=== PATIENT | female | born 1945 | race Caucasian/White ===

== ENCOUNTER → 2017-10-08 11:05 | Outpatient (CLI) | payer BC, MEDICARE, SELFPAY ==
--- NOTE | 2017-10-08 11:13 | XR_ITS ---
XR knee RT 3V HISTORY: ITS.REASON: RT KNEE PAIN ORDERING PHYSICIAN: Truman Pinto MD PATIENT AGE: 72 years COMPARISON: 04/30/2015 FINDINGS: Moderate to severe osteoarthritic changes involving the medial compartment with moderate osteoarthritis of the lateral compartment and patellofemoral joint. There is chondrocalcinosis of the medial and lateral meniscus. 9 mm partially calcified density is present along the anterior proximal aspect of the tibia. There are small prepatellar calcific densities noted as well which have increased in number. May be a bone infarct of the distal femur not significantly changed. IMPRESSION: 1. No acute finding. 2. Osteoarthritis slightly worse in the medial compartment with chondrocalcinosis and nonspecific periarticular calcification
== END ==
PROVIDERS: PCP Family Medicine; Visit Provider Family Medicine
DX: M25.561 Pain in right knee (principal)
CPT/HCPCS: 73562

== ENCOUNTER → 2018-10-29 14:18 | Outpatient (POV) | payer BC, MEDICARE, SELFPAY | PROVIDERS: Visit Provider Dermatology | DX: Z00.00 Encounter for general adult medical examination without abnormal findings (principal) ==

== ENCOUNTER → 2019-06-17 09:05 | Outpatient (POV) | payer BC, MEDICARE, SELFPAY | PROVIDERS: Visit Provider Dermatology | DX: Z00.00 Encounter for general adult medical examination without abnormal findings (principal) ==

== ENCOUNTER → 2019-08-12 10:46 | Outpatient (POV) | payer BC, MEDICARE, SELFPAY | PROVIDERS: PCP Dermatology; Visit Provider Dermatology | DX: Z00.00 Encounter for general adult medical examination without abnormal findings (principal) ==

== ENCOUNTER → 2020-03-02 11:10 | Outpatient (POV) | payer BC, MEDICARE, SELFPAY | PROVIDERS: Visit Provider Dermatology | DX: Z00.00 Encounter for general adult medical examination without abnormal findings (principal) ==

== ENCOUNTER → 2021-02-22 10:41 | Outpatient (POV) | payer BC, MEDICARE, SELFPAY | PROVIDERS: Visit Provider Dermatology | DX: Z00.00 Encounter for general adult medical examination without abnormal findings (principal) ==

== ENCOUNTER → 2021-06-27 17:27 | Outpatient (CLI) | payer BC, MEDICARE, SELFPAY ==
[2021-06-27 18:49] LABS: Adenovirus,PCR Not Detected (NotDetected); Bordetella Pertussis Not Detected (NotDetected); Chlamydophila Pneumoniae, PCR Not Detected (NotDetected); Coronavirus 229E Not Detected (NotDetected); Coronavirus NL63 Not Detected (NotDetected); Coronavirus OC43 Not Detected (NotDetected); Coronovirus HKU1,PCR Not Detected (NotDetected); Human Metapneumovirus Not Detected (NotDetected); Influenza A, PCR Not Detected (NotDetected); Influenza AH1, 2009 Not Detected (NotDetected); Influenza AH1, PCR Not Detected (NotDetected); Influenza AH3,PCR Not Detected (NotDetected); Influenza B, PCR Not Detected (NotDetected); Mycoplasma Pneumoniae, PCR Not Detected (NotDetected); Parainfluenza 1, PCR Not Detected (NotDetected); Parainfluenza 2, PCR Not Detected (NotDetected); Parainfluenza 3, PCR Not Detected (NotDetected); Parainfluenza 4, PCR Not Detected (NotDetected); Respiratory Syncytial Virus Not Detected (NotDetected); Rhinovirus/Enterovirus Not Detected (NotDetected)
[2021-06-27 19:05] LABS: Basophils # 0.1 K/mm3 (0-0.2); Basophils % 1.5 % (0.1-2.0); Eosinophils # 0.2 K/mm3 (0.0-0.4); Eosinophils % 2.3 % (0.1-12.0); Hematocrit 41.9 % (37.0-47.0); Lymphocytes # 3.3 K/mm3 (0.7-4.5); Lymphocytes % 38.3 % (10-50); Mean Corpuscular HGB Conc 33.3 g/dL (31.8-35.4); Mean Platelet Volume 9.5 fl (7.4-10.4); Monocytes # 0.4 K/mm3 (0.1-1.0); Monocytes % 5.2 % (1.7-9.3); Neutrophils # 4.5 K/mm3 (1.8-7.8); Neutrophils % 52.7 % (37.0-80.0); Platelet Count 361 K/mm3 (142-424); Red Blood Count 4.66 M/mm3 (4.20-5.40); Red Cell Distribution Width 13.3 % (11.5-17.5); White Blood Count 8.5 K/mm3 (4.8-10.8)
== END ==
PROVIDERS: PCP Family Medicine; Visit Provider Family Medicine
DX: Z20.822 Contact with and (suspected) exposure to COVID-19 (principal)
CPT/HCPCS: 36415; 85025; 87486; 87581; 87632; 87798; C9803; U0003; U0005

== ENCOUNTER → 2021-08-19 16:39 | Outpatient (CLI) | payer BC, MEDICARE, SELFPAY | PROVIDERS: PCP Family Medicine; Visit Provider Family Medicine | DX: G47.33 Obstructive sleep apnea (adult) (pediatric) (principal); R06.83 Snoring; R53.83 Other fatigue; I10 Essential (primary) hypertension; G47.10 Hypersomnia, unspecified; E66.9 Obesity, unspecified | CPT/HCPCS: G0399 ==

== ENCOUNTER → 2022-04-25 09:27 | Outpatient (CLI) | payer BC, MEDICARE, SELFPAY ==
--- NOTE | 2022-04-25 09:32 | XR_ITS ---
FINAL REPORT TECHNIQUE: 3 views CLINICAL HISTORY: wrist pain FINDINGS: RIGHT WRIST 3 views of the right wrist were obtained. There is no acute fracture or dislocation. There is severe degenerative changes of the 1st CMC joint. There are moderate degenerative changes of the radiocarpal joint. There is chondrocalcinosis of the TFCC. There is narrowing of the ulnar lunate space which may be seen with ulnar lunate abutment and TFCC disease. There is also mild widening of the scapholunate space. Soft tissues are without acute abnormality. IMPRESSION: Multiple chronic changes as above without no acute fracture. Reviewed, Interpreted and Dictated by Ena Stroud MD Transcribed by Savana Collado Authenticated and . [facility]
--- NOTE | 2022-04-25 09:32 | XR_ITS ---
FINAL REPORT TECHNIQUE: 3 views CLINICAL HISTORY: wrist pain FINDINGS: LEFT WRIST 3 views of the left wrist were obtained. There is no acute fracture or dislocation. There are moderate degenerative changes of the 1st CMC joint. There is borderline widening of the scapholunate space which could be sequela of old ligamentous injury. There are mild cystic changes of the lunate. Visualized joints are normally aligned. Soft tissues are without acute abnormality. IMPRESSION: Chronic appearing changes as above without acute process. Reviewed, Interpreted and Dictated by Ena Stroud MD Transcribed by Savana Collado Authenticated and . [facility]
== END ==
PROVIDERS: PCP Family Medicine; Visit Provider Orthopaedic Surgery
DX: M25.532 Pain in left wrist (principal); M25.531 Pain in right wrist
CPT/HCPCS: 73110

== ENCOUNTER → 2022-05-15 11:13 | Outpatient (CLI) | payer BC, MEDICARE, SELFPAY ==
--- NOTE | 2022-05-15 11:21 | XR_ITS ---
FINAL REPORT TECHNIQUE: Chest PA & Lateral CLINICAL HISTORY: cough pre op hand surg FINDINGS: 2 views of the chest were performed. The heart size is normal. The mediastinum is within normal limits. There is mild left base opacity. There are no pleural effusions. There is no pneumothorax. There are mild and moderate degenerative changes of the thoracic spine. IMPRESSION: Mild left base opacity favors atelectasis or scarring. Reviewed, Interpreted and Dictated by Rom Hernandez III, MD Transcribed by Sergio Cope Authenticated and [facility]
[2022-05-15 11:32] LABS: Microscopic, Urine URINE MICROSCOPIC (MICROSCOPIC)
[2022-05-15 12:41] LABS: Basophils # 0.1 K/mm3 (0-0.2); Basophils % 1.3 % (0.1-2.0); Eosinophils # 0.2 K/mm3 (0.0-0.4); Eosinophils % 2.3 % (0.1-12.0); Hematocrit 41.8 % (37.0-47.0); Hemoglobin 14.4 g/dL (12.2-16.2); Lymphocytes # 2.7 K/mm3 (0.7-4.5); Lymphocytes % 32.2 % (10-50); Mean Corpuscular HGB Conc 34.4 g/dL (31.8-35.4); Mean Corpuscular Hemoglobin 29.9 pg (27.0-31.2); Mean Corpuscular Volume 86.7 fl (81-99); Mean Platelet Volume 9.9 fl (7.4-10.4); Monocytes # 0.5 K/mm3 (0.1-1.0); Monocytes % 5.9 % (1.7-9.3); Neutrophils % 58.3 % (37.0-80.0); Platelet Count 391 K/mm3 (142-424); Red Blood Count 4.83 M/mm3 (4.20-5.40); Red Cell Distribution Width 12.9 % (11.5-17.5); White Blood Count 8.5 K/mm3 (4.8-10.8)
[2022-05-15 12:51] LABS: Appearance,Urine CLEAR (Clear); Bilirubin,Urine Negative (Negative); Blood, Urine Negative (Negative); Color,Urine YELLOW (Yellow); Glucose,Urine (UA) Negative (Negative); Ketones,Urine Negative (Negative); Leukocyte Esterase,Urine 2+ (Negative); Nitrate,Urine Negative (Negative); PH,Urine 5.5 (5.0-8.5); Protein,Urine Negative (Negative); Specific Gravity, Urine 1.025 (1.005-1.030); Urobilinogen,Urine 0.2 EU/dl (0.2)
[2022-05-15 13:09] LABS: Bacteria,Urine 1+ /lpf
[2022-05-15 13:43] LABS: Alanine Aminotransferase 21 U/L (12-78); Albumin Level 4.5 g/dl (3.5-5.0); Albumin/Globulin Ratio 1.7 (1.1-1.8); Alkaline Phosphatase 91 U/L (38-126); Anion Gap 15.3 mEq/L (5-15); Aspartate Amino Transferase 29 U/L (14-36); Bilirubin,Total 0.4 mg/dl (0.2-1.3); Blood Urea Nitrogen 38 mg/dl (7-17); Calcium 9.7 mg/dl (8.4-10.2); Carbon Dioxide 22 mmol/L (22.0-30.0); Chloride 107 mmol/L (98-107); Estimated Glomerular Filt Rate 60 ml/min (>60); GFR (African American) 73 ML/MIN (>60); Globulin 2.6 g/dL (1.3-3.2); Glucose 94 mg/dl (74-100); Potassium 4.3 mmoL/L (3.5-5.1); Sodium 140 mmol/L (136-145); Total Protein,Serum 7.1 g/dl (6.3-8.2)
== END ==
PROVIDERS: PCP Family Medicine; Visit Provider Orthopaedic Surgery
DX: Z01.818 Encounter for other preprocedural examination (principal); G56.01 Carpal tunnel syndrome, right upper limb; R05.9 Cough, unspecified; R82.90 Unspecified abnormal findings in urine
CPT/HCPCS: 36415; 71046; 80053; 81001; 85025; 87086

== ENCOUNTER 2022-05-22 06:01 | Day surgery (SDC) | payer BC, MEDICARE, SELFPAY ==
[2022-05-22 06:27] VITALS: BP 152/56; PULSE 62; RESP 18; TEMP 36.3; O2SAT 98; BMI 33.9
--- NOTE | 2022-05-22 07:08 | P.PN_ITS ---
[facility] Disclaimer: The information contained in this section may have been updated after the patient was seen, as this information can be updated by other users. Medical History (Updated 05/22/22 @ 06:25 by Benjamin Cyr RN) History of acute arthritis History of hypothyroidism HLD (hyperlipidemia) HTN (hypertension) Wrist pain Surgical History (Updated 05/22/22 @ 06:25 by Benjamin Cyr RN) History of appendectomy History of knee replacement History of thyroidectomy Family History (Updated 05/22/22 @ 06:26 by Benjamin Cyr RN) Other Family history of Alzheimer's disease Family history of cancer Family history of cardiac arrest Social History (Updated 05/22/22 @ 06:27 by Benjamin Cyr RN) Smoking Status: Never smoker second hand exposure: No alcohol intake: never substance use type: denies use current occupational status: employed Travel in the last 8 weeks: None [facility] Anesthesia Checklist Patient Identification Patient Identification: Arm Band and Family Structural Data Admitted From: Home Planned Operative Procedure/s: Endocopic CTR Consent for Planned Operative Procedure(s) Verified: Yes Verified Documents: Surgical Consent and History and Physical NPO Status Verified Time NPO: 00:00 Additional verifications Patient : No Anesthesia Reactions: No Hx Blood Transfusions: No Blood Transfusion Reaction: No Cephalosporin Allergy: No Previous Colonoscopy: Yes Cardiovascular Assessment Peripheral Edema: No Airway Assessment C-Spine Mobility Assessed: Yes TMJ Mobility Assessed: Yes Dentition: Good Dentition Neurological Assessment Level of Consciousness: Awake, Alert, Appropriate and Follows Commands Hx Seizures: No Numbness or tingling in extremities: No Anesthesia Plan Anesthesia Risk discussed: Yes ASA Class: II Anesthesia Type: MAC
--- NOTE | 2022-05-22 08:22 | P.OP_ITS ---
Date of procedure: 05/22/22 Pre-op Diagnosis:: Right carpal tunnel syndrome Post-op Diagnosis:: Same Procedure performed:: Right endoscopic carpal tunnel release Surgeon:: Ankur Adams DO FINANCIAL SYSTEMS MANAGER:: Other Anesthesia: MAC and local Estimated blood loss (mL): 0 Operative findings:: See dictation Operative note:: Patient identified preoperatively. Right wrist marked with a yes and my initials. Transferred operative suite. Placed upon operating bed. Sedation given. Right upper extremity prepped and draped in normal sterile fashion. Once prepped and draped final operative timeout performed to identify proper patient procedure and extremity. Everyone involved the case agreed. No counter indications to beginning. Did receive preoperative antibiotics. Marking pen was used to sheldon plan incision over the volar wrist crease. Esmarch was used to exsanguinate extremity pneumatic tourniquet inflated 250 mmHg. Local anesthesia injected to the incision site. Skin knife was used to incise through skin. Careful dissection was taken down bluntly with scissors to identify the most proximal aspect of the transverse carpal ligament. Once identified the dilator from the endoscopic carpal tunnel release set was utilized followed by the sled for the right endoscopic carpal tunnel release. Once this lead was then placed the camera was placed inside the wrist through this lead to identify the transverse carpal ligament which was clearly seen superior and the camera. Probe was used to probe the distal end of the transverse carpal ligament soft tissue rasp was used to remove soft tissue from the transverse carpal ligament and the endoscopic carpal tunnel release hook knife was placed and full release of transverse carpal ligament was performed this was directly visualized on the camera. Photos taken. Sled removed. Copious irrigation wound performed. Tourniquet deflated. Hemostasis obtained with bipolar cautery. Skin closed with nylon stitch sterile hand dressing placed. Patient waken anesthesia taken recovery in stable condition. Tourniquet time (min): 11 Condition: stable Disposition: PACU Complications:: None apparent
[2022-05-22 08:24] VITALS: BP 159/81; PULSE 51; RESP 18; TEMP 36.1; O2SAT 99
[2022-05-22 08:34] VITALS: BP 146/80; PULSE 48; RESP 17; O2SAT 98
[2022-05-22 08:44] VITALS: BP 151/79; PULSE 76; RESP 18; O2SAT 96
[2022-05-22 09:00] VITALS: BP 161/84; PULSE 53; RESP 17; O2SAT 97
== END 2022-05-22 09:00 | disposition home or self-care (01) ==
PROVIDERS: PCP Family Medicine; Visit Provider Orthopaedic Surgery
PROC: (CPT 64721; principal; 2022-05-22 07:30)
DX: G56.01 Carpal tunnel syndrome, right upper limb (principal)
CPT/HCPCS: 64721; 96374; J2405

== ENCOUNTER → 2022-09-25 08:55 | Outpatient (CLI) | payer BC, MEDICARE, SELFPAY ==
--- NOTE | 2022-09-25 09:01 | XR_ITS ---
FINAL REPORT CLINICAL HISTORY: PAIN IN LEFT ANKLE AND JOINTS OF LEFT FOOT x several weeks, no injury FINDINGS: LEFT ANKLE Three views demonstrate no acute fracture or dislocation. There is diffuse soft tissue swelling. The mortise is intact. A small plantar spur is noted. There is prominent osteophyte formation in the posterior aspect the talonavicular joint. IMPRESSION: Hypertrophic changes of osteoarthritis with mild soft tissue swelling. Reviewed, Interpreted and Dictated by Ottoniel Esparza MD Transcribed by Le Angulo Authenticated and [facility]
--- NOTE | 2022-09-25 09:01 | XR_ITS ---
FINAL REPORT CLINICAL HISTORY: LOW BACK PAIN, no injury FINDINGS: LUMBAR SPINE Five views were obtained. There is no acute fracture. There is minimal spondylolisthesis of L4 on L5. Mild anterior osteophyte formation is seen at T12-L1 and L1-L2. There is no soft tissue abnormality. IMPRESSION: Mild degenerative changes with no acute bony abnormality. Reviewed, Interpreted and Dictated by Ottoniel Esparza MD Transcribed by Le Angulo Authenticated and [facility]
== END ==
PROVIDERS: PCP Family Medicine; Visit Provider Family Medicine
DX: M54.50 Low back pain, unspecified (principal); M25.572 Pain in left ankle and joints of left foot
CPT/HCPCS: 72110; 73610

== ENCOUNTER → 2022-12-26 09:19 | Outpatient (CLI) | payer BC, MEDICARE, SELFPAY ==
[2022-12-26 10:47] LABS: Anion Gap 9.7 mEq/L (5-15); Blood Urea Nitrogen 25 mg/dl (7-17); Calcium 9.3 mg/dl (8.4-10.2); Carbon Dioxide 29 mmol/L (22.0-30.0); Chloride 106 mmol/L (98-107); Estimated Glomerular Filt Rate 60 ml/min (>60); GFR (African American) 73 ML/MIN (>60); Glucose 90 mg/dl (74-100); Potassium 4.7 mmoL/L (3.5-5.1); Sodium 140 mmol/L (136-145)
[2022-12-26 11:13] LABS: Free T4 (Free Thyroxine) 1.73 ng/dl (0.78-2.19)
[2022-12-26 11:14] LABS: 25-OH Vitamin D, Total 28.4 ng/mL (30-100)
[2022-12-26 11:29] LABS: Thyroid Stimulating Hormone 0.19 uIU/mL (0.465-4.68)
== END ==
PROVIDERS: PCP Family Medicine; Visit Provider Family Medicine
DX: E03.9 Hypothyroidism, unspecified (principal); I10 Essential (primary) hypertension; E55.9 Vitamin D deficiency, unspecified
CPT/HCPCS: 36415; 80048; 82306; 84439; 84443

== ENCOUNTER → 2023-02-19 10:35 | Outpatient (CLI) | payer BC, MEDICARE, SELFPAY | PROVIDERS: PCP Family Medicine; Visit Provider Family Medicine | DX: Z20.822 Contact with and (suspected) exposure to COVID-19 (principal) | CPT/HCPCS: 87635 ==

== ENCOUNTER → 2023-04-13 08:41 | Outpatient (CLI) | payer BC, MEDICARE, SELFPAY ==
--- NOTE | 2023-04-13 08:44 | US_ITS ---
FINAL REPORT CLINICAL HISTORY: RUQ PAIN COMPARISON: None FINDINGS: Sonographic images of the right upper quadrant were obtained. The pancreas is partially obscured. There are a few focal areas of increased echogenicity within the liver that is consistent with focal fatty infiltration of the liver. Gallstones are present in the gallbladder. There is no evidence of biliary ductal dilatation.The common duct measures 3.3mm. Limited views of the right kidney are unremarkable. IMPRESSION: Gallstones are present, without biliary ductal dilatation. Focal fatty infiltration of the liver. Reviewed, Interpreted and Dictated by Ottoniel Esparza MD Transcribed by Ximena Duran Authenticated and [facility]
== END ==
PROVIDERS: PCP Family Medicine; Visit Provider Family Medicine
DX: R10.11 Right upper quadrant pain (principal); R10.13 Epigastric pain; R19.8 Other specified symptoms and signs involving the digestive system and abdomen
CPT/HCPCS: 76705

== ENCOUNTER → 2023-05-03 09:42 | Outpatient (CLI) | payer BC, MEDICARE, SELFPAY ==
--- NOTE | 2023-05-03 09:43 | NM_ITS ---
FINAL REPORT TECHNIQUE: Sequential anterior images were obtained after the ingestion of 2 whole eggs, white toast with butter, and 6 ounces of water radiolabeled with 0.49 mCi technetium 99M sulfur colloid. CLINICAL HISTORY: nausea 10:35 am .49 mci tc sulfur colloid injected into 2 whole eggs white toast with bitter 6 oz water COMPARISON: None FINDINGS: GASTRIC EMPTYING SCAN Static images show normal emptying of the stomach into the small bowel. Based on the time activity curve, the estimated half-emptying time is normal at 94 minutes. IMPRESSION: Normal gastric emptying study. Reviewed, Interpreted and Dictated by Rom Hernandez III, MD Transcribed by Dorothy Cabrera Authenticated and [facility]
== END ==
PROVIDERS: PCP Family Medicine; Visit Provider Surgery
DX: R11.0 Nausea (principal)
CPT/HCPCS: 78264; A9541

== ENCOUNTER → 2023-05-07 07:26 | Outpatient (CLI) | payer BC, MEDICARE, SELFPAY ==
--- NOTE | 2023-05-07 08:01 | FL_ITS ---
FINAL REPORT CLINICAL HISTORY: nausea lower belly pain 2.17 fluoro time 3344.24 dap FINDINGS: AIR CONTRAST UPPER GI AND SMALL BOWEL FOLLOW THROUGH HISTORY: Abdominal pressure, nausea, some weight loss. TECHNIQUE: The patient ingested thick and thin barium contrast. Effervescent crystals were also administered. Additional barium contrast was administered for small bowel follow-through. Spot and overhead films were performed. A total of 66 images were saved. FINDINGS: UGI: There is a small sliding-type hiatal hernia. There is mild esophageal dysmotility. The stomach is of normal size, shape and position. No gastric filling defects are seen. The duodenal bulb and sweep appear unremarkable. Gastroesophageal reflux is noted to the mid esophagus. 13 mm barium tablet passes easily through the esophagus and into the stomach. SBFT: The animal nutritionist film is unremarkable. The transit time to the colon is normal. Contrast reaches the colon at 15 minutes. The mucosal fold pattern is normal. Spot images of the terminal ileum are unremarkable. FLUROSCOPY TIME: 2 minutes 17 seconds Radiation exposure in Total DAP: 3344.24 uGym2 IMPRESSION: Small sliding-type hiatal hernia with gastroesophageal reflux. Mild esophageal dysmotility. Otherwise, unremarkable upper GI and small bowel follow-through. Reviewed, Interpreted and Dictated by Ottoniel Esparza MD Transcribed by Veronica Hager PA-C Authenticated and [facility]
== END ==
LOC: RAD 07:27
PROVIDERS: PCP Family Medicine; Visit Provider Surgery
DX: R11.0 Nausea (principal)
CPT/HCPCS: 74246; 74248

== ENCOUNTER 2023-07-06 07:23 | Day surgery (SDC) | payer BC, MEDICARE, SELFPAY ==
[2023-07-05 09:04] VITALS: BMI 32.3
[2023-07-06 07:38] VITALS: BP 159/66; PULSE 63; RESP 18; TEMP 36.1; O2SAT 99
[2023-07-06] MEDS: LACTATED RINGERS 1000ML 1,000 ML 25 ML IV (07:45)
--- NOTE | 2023-07-06 08:03 | P.PNANES_ITS ---
[facility] Disclaimer: The information contained in this section may have been updated after the patient was seen, as this information can be updated by other users. Medical History History of acute arthritis History of hypothyroidism HLD (hyperlipidemia) HTN (hypertension) Right carpal tunnel syndrome Status post endoscopic carpal tunnel release Wrist pain Surgical History History of appendectomy History of colonoscopy History of knee replacement History of thyroidectomy Family History Other Family history of Alzheimer's disease Family history of cancer Family history of cardiac arrest Social History Smoking Status: Never smoker second hand exposure: No alcohol intake: never substance use type: denies use current occupational status: employed Travel in the last 8 weeks: None caffeine: No [facility] Anesthesia Checklist Patient Identification Patient Identification: Verbal (Name & ) Structural Data Admitted From: Home Planned Operative Procedure/s: egd,colon Consent for Planned Operative Procedure(s) Verified: Yes Additional verifications Anesthesia Reactions: No Hx Blood Transfusions: No Blood Transfusion Reaction: No Airway Assessment Mallampati Score:: Class II C-Spine Mobility Assessed: Yes TMJ Mobility Assessed: Yes Dentition: Good Dentition Neurological Assessment Level of Consciousness: Awake, Alert and Appropriate Anesthesia Plan Anesthesia Risk discussed: Yes Anesthesia Plan: Verified ASA Class: II Anesthesia Type: MAC
--- NOTE | 2023-07-06 08:22 | EXP.GEN.HP ---
HPI HPI HPI: Patient presents for EGD/colonoscopy. She is a very pleasant 78-year-old female with hypertension, hyper triglyceridemia referred by Dr. Pinto for gallbladder and seen in the office initially on 04/26/2023. She states that she had presented to primary care provider's office and has had a couple month history of early satiety, bloating, and some belching. She actually describes her abdominal bloating in her lower abdomen. She has no pain. She has no nausea. She had a gallbladder ultrasound on 04/13/2023 which reveals findings consistent with focal fatty infiltration of the liver with gallstones present with no evidence of any ductal dilatation. I had felt that her symptomatology was somewhat atypical for gallbladder. I had her undergo upper GI with small bowel follow-through as well as gastric emptying scan. Gastric emptying scan is normal. Upper GI with small bowel follow-through reveals a small sliding-type hiatal hernia with radiographic gastroesophageal reflux and findings of mild esophageal dysmotility. She does state that she had prior colonoscopy about 12 or 14 years ago. Review of the record reveals that she underwent colonoscopy as her only initial screening colonoscopy by Dr. Dru Guillaume on 07/06/2004. She had minimal diverticulosis. Patient did not desire proceeding with cholecystectomy given her limited symptoms. I did discuss with her proceeding with colonoscopy given the long duration since prior colonoscopy as well as her symptoms of abdominal bloating and discomfort. Since much of her symptoms were upper GI related plan was to proceed with EGD as well. [facility] Disclaimer: The information contained in this section may have been updated after the patient was seen, as this information can be updated by other users. Medical History History of acute arthritis History of hypothyroidism HLD (hyperlipidemia) HTN (hypertension) Right carpal tunnel syndrome Status post endoscopic carpal tunnel release Wrist pain Surgical History History of appendectomy History of colonoscopy History of knee replacement History of thyroidectomy Family History Other Family history of Alzheimer's disease Family history of cancer Family history of cardiac arrest Social History Smoking Status: Never smoker second hand exposure: No alcohol intake: never substance use type: denies use current occupational status: employed Travel in the last 8 weeks: None caffeine: No Review of Systems Review of Systems Review of systems:: pertinent systems reviewed and negative unless documented below Meds Home Medications and Allergies Home Medications Medication Instructions Recorded Confirmed Type atorvastatin 10 mg tablet 10 mg PO DAILY Cholesterol 05/22/22 07/06/23 History dorzolamide 22.3 mg-timolol 6.8 1 drp Eye-Both DAILY eyes 05/22/22 07/06/23 History mg/mL eye drops latanoprost 0.005 % eye drops 1 drp Eye-Both DAILY eyes 05/22/22 07/06/23 History lisinopril 10 1 tab PO DAILY bp 05/22/22 07/06/23 History mg-hydrochlorothiazide 12.5 mg tablet metoprolol succinate 25 mg 25 mg PO DAILY bp 05/22/22 07/06/23 History tablet,extended release 24 hr multivitamin 1 tab PO DAILY Supplement 05/22/22 07/06/23 History aspirin 81 mg tablet,delayed 81 mg PO DAILY 04/26/23 07/06/23 History release cholecalciferol (vitamin D3) 25 25 mcg PO DAILY 04/26/23 07/06/23 History mcg (1,000 unit) capsule cyanocobalamin (vitamin B-12) 5,000 mcg sublingual DAILY 04/26/23 07/06/23 History 5,000 mcg sublingual tablet (Vitamin B-12) levothyroxine 150 mcg tablet 125 mcg PO DAILY thyroid 04/26/23 07/06/23 History omega 9-pxu-imu-fish oil 100 1 cap PO DAILY 04/26/23 07/06/23 History mg-160 mg-1,000 mg capsule (Fish Oil) New Prescriptions to Start Prescriptions: Allergies Allergy/AdvReac Type Severity Reaction Status Date / Time No Known Drug Allergies Allergy Unknown Uncoded 05/10/23 10:46 Exam Data for Last 24 hours Vital signs and Labs for Last 24 Hours: Temp Pulse Resp BP Pulse Ox O2 Del Method 97.0 F L 63 18 159/66 H 99 Room Air 07/06/23 07:38 07/06/23 07:38 07/06/23 07:38 07/06/23 07:38 07/06/23 07:38 07/06/23 07:38 I & O for Last 24 hours: Intake & Output 07/03/23 07/04/23 07/05/23 07/06/23 11:59 11:59 11:59 11:59 Weight 200 lb Constitutional Constitutional: no acute distress *Routine HEENT Exam Head: Present normocephalic Eye: Present EOMI and PERRL ENT: Present mucous membranes moist *Routine Neck Exam Neck: Present supple; Absent lymphadenopathy *Routine Respiratory Exam Respiratory: Present CTA bilaterally *Routine Cardiovascular Exam Cardiovascular: Present RRR *Routine Abdominal Exam Abdominal: Present soft and normoactive bowel sounds; Absent tenderness *Routine Rectal Exam Rectal:: deferred *Routine Genitalia Exam Genitalia:: deferred *Routine Extremities Exam Extremities: Absent cyanosis, clubbing or edema *Routine Skin Exam Skin: Present warm; Absent rash *Routine Neurological Exam Neurological: Present alert and oriented X3 Assessment and Plan *Assessment and plan (1) Abdominal bloating: Status: Acute Category: Medical Code(s): R14.0 - Abdominal distension (gaseous) Plan Plan to proceed with upper endoscopy and colonoscopy. If unremarkable and patient has ongoing progressive symptoms I will correctional classification counselor her once again regarding possible cholecystectomy.
[2023-07-06 08:38] VITALS: O2SAT 100
[2023-07-06 09:22] VITALS: BP 83/47; PULSE 86; RESP 16; O2SAT 92
--- NOTE | 2023-07-06 09:23 | HMH.SCOPE ---
Procedure: Date: 07/06/23 Patient Date of :: 1945 Procedure Performed:: Esophagogastroduodenoscopy with biopsies Total colonoscopy to terminal ileum with polypectomy using snare Indications:: Patient presents for EGD/colonoscopy. She is a very pleasant 78-year-old female with hypertension, hyper triglyceridemia referred by Dr. Pinto for gallbladder and seen in the office initially on 04/26/2023. She states that she had presented to primary care provider's office and has had a couple month history of early satiety, bloating, and some belching. She actually describes her abdominal bloating in her lower abdomen. She has no pain. She has no nausea. She had a gallbladder ultrasound on 04/13/2023 which reveals findings consistent with focal fatty infiltration of the liver with gallstones present with no evidence of any ductal dilatation. I had felt that her symptomatology was somewhat atypical for gallbladder. I had her undergo upper GI with small bowel follow-through as well as gastric emptying scan. Gastric emptying scan is normal. Upper GI with small bowel follow-through reveals a small sliding-type hiatal hernia with radiographic gastroesophageal reflux and findings of mild esophageal dysmotility. She does state that she had prior colonoscopy about 12 or 14 years ago. Review of the record reveals that she underwent colonoscopy as her only initial screening colonoscopy by Dr. Dru Guillaume on 07/06/2004. She had minimal diverticulosis. Patient did not desire proceeding with cholecystectomy given her limited symptoms. I did discuss with her proceeding with colonoscopy given the long duration since prior colonoscopy as well as her symptoms of abdominal bloating and discomfort. Since much of her symptoms were upper GI related plan was to proceed with EGD as well. Performing Provider:: Rom Garnica MD Referring Provider:: Truman Pinto MD Sedation:: MAC sedation Procedure:: Patient history was obtained and appropriate physical examination was performed. Patient's medications and allergies were reviewed. Informed consent was obtained after explaining the benefits, alternatives, and risks of the procedure including, but not limited to, bleeding, perforation, missed lesions, and adverse reaction to anesthesia medications. Patient was transported to endoscopy procedure room. Patient was connected to monitoring devices. Throughout the procedure the patient's blood pressure, pulse, and oxygen saturations were monitored continuously. Patient identification and planned procedure were verified by the staff. Patient was positioned in lateral decubitus position. Attention was first turned to upper endoscopy. Olympus endoscope was inserted via the oropharynx. Esophagus was cannulated. There was some minor tortuosity to the esophagus consistent with esophageal dysmotility. Gastroesophageal junction was encountered at approximately 38 cm. There was some prominent mucosa at the gastroesophageal junction possibly consistent with Staley's esophagus. Stomach was cannulated and insufflated. Retroflexion revealed a small approximately 3 cm sliding hiatal hernia. There was some diffuse moderate gastropathy. In the prepyloric antrum there were at least a couple of ulcers which appeared to be inflamed with surrounding erythema and edema with. There was some deep cratering with exudate. Pylorus was traversed. Duodenum appeared normal. Endoscope was withdrawn into the gastric lumen and gastric antral biopsy was obtained for histopathologic analysis and H. pylori assessment. Due to the inflammation around these ulcers biopsies were not obtained. A couple biopsies were obtained at the gastroesophageal junction. Endoscope was withdrawn. Next attention was turned to colonoscopy digital anorectal exam was performed. Variable stiffness Olympus colonoscope was inserted and advanced under direct visualization to the cecum. Adequacy of the colonic preparation was noted. The colonoscope was advanced a short distance into the terminal ileum. In the cecum there was a somewhat subtle sessile irregular polyp in the periappendiceal location. This was removed partially with cold cutting snare and residual tissue removed with multiple biopsy. The colonoscope was then slowly withdrawn while carefully examining the color, texture, anatomy, and integrity of the mucosoa circumferentially. There was diffuse pandiverticulosis. She had appreciable right-sided melanosis coli findings and multiple biopsies were obtained differentiating right and left random biopsies. Within the rectum retroflexion was performed. There were some mildly irritated internal hemorrhoids. Colonoscope was then withdrawn. 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 Follow-up on histopathology and H. pylori status and treat if appropriate. Likely would plan for follow-up endoscopy in 12 to 16 weeks to assess for healing. Would definitely treat this initially prior to consideration of cholecystectomy. Follow-up colonoscopy pending pathology of polyp. Complications:: None immediately apparent Estimated blood obtained (mL): 3 Colonoscopy Component Colonoscopy Component Was a colonoscopy performed during today's procedure?: Yes Recommended follow up colonoscopy of at least 10 years?: No If no, follow up colonoscopy recommended in ___ years?: See above Reason for not recommending >/= 10 yr follow-up interval?: See above
[2023-07-06 09:32] VITALS: BP 95/45; PULSE 85; RESP 16; O2SAT 94
[2023-07-06 09:42] VITALS: BP 111/51; PULSE 71; RESP 16; O2SAT 96
[2023-07-06 09:52] VITALS: BP 121/62; PULSE 71; RESP 16; O2SAT 96
== END 2023-07-06 09:55 | disposition home or self-care (01) ==
PROVIDERS: PCP Family Medicine; Visit Provider Surgery
PROC: 0DJ08ZZ Inspection of Upper Intestinal Tract, Via Natural or Artificial Opening Endoscopic (ICD-10-PCS; CPT 43235; principal; 2023-07-06 08:30)
DX: R14.0 Abdominal distension (gaseous) (principal); Z86.010 Personal history of colon polyps; K57.92 Diverticulitis of intestine, part unspecified, without perforation or abscess without bleeding; K80.20 Calculus of gallbladder without cholecystitis without obstruction; D12.0 Benign neoplasm of cecum; K31.9 Disease of stomach and duodenum, unspecified; K22.4 Dyskinesia of esophagus; Q40.1 Congenital hiatus hernia; K25.9 Gastric ulcer, unspecified as acute or chronic, without hemorrhage or perforation; K64.8 Other hemorrhoids
CPT/HCPCS: 45385; 43239; J2704

== ENCOUNTER 2023-11-02 09:59 | Day surgery (SDC) | payer BC, MEDICARE, SELFPAY ==
[2023-11-02 10:11] VITALS: BP 169/76; PULSE 58; RESP 18; TEMP 36.4; O2SAT 96; BMI 34.1
[2023-11-02] MEDS: LACTATED RINGERS 1000ML 1,000 ML 25 ML IV (10:16)
--- NOTE | 2023-11-02 10:16 | P.PNANES_ITS ---
[facility] Disclaimer: The information contained in this section may have been updated after the patient was seen, as this information can be updated by other users. Medical History History of acute arthritis History of hypothyroidism HLD (hyperlipidemia) HTN (hypertension) Right carpal tunnel syndrome Wrist pain Surgical History History of colonoscopy History of appendectomy History of knee replacement History of thyroidectomy Family History Other Family history of Alzheimer's disease Family history of cancer Family history of cardiac arrest Social History Smoking Status: Never smoker second hand exposure: No alcohol intake: never substance use type: denies use current occupational status: employed Travel in the last 8 weeks: None caffeine: No [facility] Anesthesia Checklist Patient Identification Patient Identification: Arm Band and Verbal (Name & ) Structural Data Admitted From: Home Planned Operative Procedure/s: EGD Consent for Planned Operative Procedure(s) Verified: Yes NPO Status Verified Time NPO: 00:00 Additional verifications Anesthesia Reactions: No Hx Blood Transfusions: No Blood Transfusion Reaction: No Airway Assessment Mallampati Score:: Class III C-Spine Mobility Assessed: Yes TMJ Mobility Assessed: Yes Dentition: Good Dentition Neurological Assessment Level of Consciousness: Awake Hx Seizures: No Numbness or tingling in extremities: No Anesthesia Plan Anesthesia Risk discussed: Yes Anesthesia Plan: Verified ASA Class: II Anesthesia Type: MAC
--- NOTE | 2023-11-02 10:26 | P.PCN_ITS ---
Procedure: Date: 11/02/23 Patient Date of :: 1945 Procedure Performed:: Esophagogastroduodenoscopy with biopsies . Indications:: Patient presents for follow-up repeat EGD. She is a very pleasant 78-year-old female with hypertension, hyper triglyceridemia originally referred by Dr. Pinto for gallbladder and seen in the office initially on 04/26/2023. She had early satiety, bloating, and some belching. Gallbladder ultrasound on 04/13/2023 revealed focal fatty infiltration of the liver with gallstones present with no evidence of any ductal dilatation. I had felt that her symptomatology was somewhat atypical for gallbladder. I had her undergo upper GI with small bowel follow-through as well as gastric emptying scan. Gastric emptying scan is normal. Upper GI with small bowel follow-through reveals a small sliding-type hiatal hernia with radiographic gastroesophageal reflux and findings of mild esophageal dysmotility. Previously she had colonoscopy about 20 years ago. Patient did not desire proceeding with cholecystectomy given her limited symptoms. I did discuss with her proceeding with colonoscopy given the long duration since prior colonoscopy as well as her symptoms of abdominal bloating and discomfort. Since much of her symptoms were upper GI related plan was to proceed with EGD as well. She underwent EGD and colonoscopy on 07/06/2023. She had 3 cm sliding hiatal he rnia and mild esophageal dysmotility. There was some moderate nonerosive diffuse gastropathy. However she had 2 inflamed exudative prepyloric ulcers. Biopsies revealed mild gastropathy and findings of reflux esophagitis. She had a subtle polyp in the periappendiceal location which was biopsied and returned as sessile serrated adenoma. She had diffuse rare pandiverticulosis and some minimal inflamed hemorrhoids. I initiated her on treatment for her ulcer with starting Protonix. H. pylori was negative. I advised for a follow-up EGD after about 3 months to assess for healing of the ulcers. I would advocate a repeat colonoscopy in 2 years given the serrated adenoma. If she has recurrent symptoms once her ulcers are healed consideration may be given for cholecystectomy. She may have some degree of esophageal dysmotility exacerbated by hiatal hernia. Her only symptoms have been occasional early satiety. . Performing Provider:: Rom Garnica MD . Referring Provider:: Truman Pinto MD . Sedation:: MAC sedation . Procedure:: Patient history was obtained and appropriate physical examination was performed. Patient's medications and allergies were reviewed. Informed consent was obtained after explaining the benefits, alternatives, and risks of the procedure including, but not limited to, bleeding, perforation, missed lesions, and adverse reaction to anesthesia medications. Patient was transported to endoscopy procedure room. Patient was connected to monitoring devices. Throughout the procedure the patient's blood pressure, pulse, and oxygen saturations were monitored continuously. Patient identification and planned procedure were verified by the staff. Patient was positioned in lateral decubitus position. Olympus endoscope was inserted via the oropharynx. Esophagus was intubated and cannulated. There was some cricopharyngeal spasm. There was some tortuosity to the esophagus consistent with esophageal dysmotility. Gastroesophageal junction was encou ntered at approximately 35 cm. Stomach was cannulated. Insufflation was performed. Retroflexion revealed small approximately 3 cm sliding hiatal hernia. There was some diffuse gastropathy. There was some more prominent gastropathy/gastritis in the prepyloric location where she had previous ulcers but no evidence of any residual ulcer. Pylorus was traversed. Duodenum appeared unremarkable. Biopsy was obtained within the duodenal bulb. A couple biopsies were obtained at the prepyloric location where she previously had ulcers. Couple of biopsies were obtained of the distal esophagus. . Findings:: Findings consistent with esophageal dysmotility Gastroesophageal junction at 35 cm Diffuse nonerosive gastritis/gastropathy . Recommendations:: Continue Protonix for now. Some of her symptoms may be secondary to esophageal dysmotility. . Complications:: None immediately apparent Estimated blood obtained (mL): 3 Colonoscopy Component Colonoscopy Component Was a colonoscopy performed during today's procedure?: No
[2023-11-02 10:41] VITALS: O2SAT 99
[2023-11-02 10:55] VITALS: BP 134/78; PULSE 71; RESP 12; TEMP 36.4; O2SAT 94
[2023-11-02 11:05] VITALS: BP 129/75; PULSE 73; RESP 12; O2SAT 94
[2023-11-02 11:15] VITALS: BP 146/72; PULSE 53; RESP 18; O2SAT 96
[2023-11-02 11:20] VITALS: BP 137/68; PULSE 56; RESP 18; O2SAT 97
== END 2023-11-02 11:21 | disposition home or self-care (01) ==
PROVIDERS: PCP Family Medicine; Visit Provider Surgery
PROC: 0DJ08ZZ Inspection of Upper Intestinal Tract, Via Natural or Artificial Opening Endoscopic (ICD-10-PCS; CPT 43235; principal; 2023-11-02 11:00)
DX: K25.9 Gastric ulcer, unspecified as acute or chronic, without hemorrhage or perforation (principal); K22.4 Dyskinesia of esophagus
CPT/HCPCS: 43239; J7120

== ENCOUNTER 2023-11-20 18:53 | Emergency (ER) | payer MEDICARE, BC, SELFPAY ==
[2023-11-20 18:54] VITALS: BP 165/69; PULSE 74; RESP 18; TEMP 36.7; O2SAT 97; BMI 32.8
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
--- NOTE | 2023-11-20 19:04 | XR_ITS ---
PROCEDURE INFORMATION: Exam: XR Right Ankle Exam date and time: 11/20/2023 7:13 PM Age: 78 years old Clinical indication: Injury or trauma; Fall; Blunt trauma; Ankle; Right; Additional info: Fall down steps, head injury, pain TECHNIQUE: Imaging protocol: Radiologic exam of the right ankle. Views: 3 or more views. COMPARISON: CR Foot R 11/20/2023 7:11 PM FINDINGS: Bones/joints: Minimally displaced spiral oblique fracture in the distal fibula consistent with acute fracture.. Soft tissue swelling of the ankle and foot. Soft tissues: See Bones/joints finding. IMPRESSION: 1. Minimally displaced spiral oblique fracture in the distal fibula consistent with acute fracture.. 2. Soft tissue swelling of the ankle and foot.
[2023-11-20 19:07] VITALS: BP 165/69; PULSE 59; O2SAT 96
--- NOTE | 2023-11-20 19:07 | HMH.EDGENADL ---
Discharge Plan Disposition Patient Disposition: Home, Self-Care Condition: Good Prescriptions Prescriptions: New oxycodone 5 mg tablet 5 mg PO Q8H PRN (Reason: pain) Qty: 12 0RF No Action cyanocobalamin (vitamin B-12) [Vitamin B-12] 5,000 mcg tablet, sublingual 5,000 mcg sublingual DAILY cholecalciferol (vitamin D3) 25 mcg (1,000 unit) capsule 25 mcg PO DAILY Fish Oil 100-160-1,000 mg capsule 1 cap PO DAILY aspirin 81 mg tablet,delayed release (DR/EC) 81 mg PO DAILY pantoprazole [Protonix] 40 mg tablet,delayed release (DR/EC) 40 mg PO DAILY Qty: 30 2RF multivitamin Tablet 1 tab PO DAILY latanoprost 0.005 % drops 1 drp Eye-Both DAILY Patient Comments: use one drop in both eyes at bedtime. atorvastatin 10 mg tablet 10 mg PO DAILY Patient Comments: TAKE ONE TABLET BY MOUTH ONCE DAILY dorzolamide-timolol 22.3-6.8 mg/mL drops 1 drp Eye-Both DAILY Patient Comments: place 1 drop into both eyes twice a day metoprolol succinate 25 mg tablet extended release 24 hr 25 mg PO DAILY Patient Comments: TAKE 1 TABLET ONCE A DAY. lisinopril-hydrochlorothiazide 10-12.5 mg tablet 1 tab PO DAILY Patient Comments: TAKE ONE TABLET BY MOUTH ONCE DAILY levothyroxine 150 mcg tablet 125 mcg PO DAILY Patient Comments: TAKE ONE TABLET BY MOUTH ONCE DAILY Referrals Follow up/Referrals: Truman Pinto MD [Primary Care Provider] - See instructions Ankur Adams DO [Staff Physician] - See instructions Activity Restrictions/Add. Instructions Additional Instructions/Restrictions: You were evaluated in the emergency department today and diagnosed with a laceration of your scalp and a fracture of your right fibula. Please draft roller picker your prescription for pain medication and take as needed for severe pain. If your pain is well-controlled with Tylenol and ibuprofen at home, you do not have to take this medication. Please follow-up closely with your primary care provider as well as with orthopedics. I provided you with information for Dr. Adams. Please keep your walking boot on. Limit weightbearing on your lower extremity. Your radha in your scalp will need to be removed in 12 to 14 days. Keep your wound clean and dry. Do not submerge under any water. Try not to scrub it. Return to the emergency department for new or worsening symptoms. Clinical Impressions Clinical Impression: Laceration of scalp, Closed right fibular fracture Instructions Patient Instructions: DI for Ankle Fracture, DI for Laceration Repair of the Scalp, DI for Closed Head Injury Discharge ED Provider: Veronica Vasquez General Adult HPI General Chief complaint: Head Injury Stated complaint: Ao06/25@1430 head lac, RT ankle inj Time Seen by Provider: 11/20/23 18:58 History of Present Illness HPI narrative: This patient is an 78-year-old female with history of hypertension, hyperlipidemia, hypothyroidism, and daily aspirin use presenting to the emergency department for evaluation with concern for fall with head injury and right ankle injury. Patient reports that she fell down approximately 2 steps backwards and hit her head on a heater at approximately 2:30 PM today. She notes that [facility] came out and evaluated her and stated that she was fine, but she is having right ankle pain and cannot walk very well and she also keeps having bleeding from a wound on her scalp. No other concerns noted at this time. She was well prior to the fall and states it was purely mechanical. Related Data Home Medications Medication Instructions Recorded Confirmed atorvastatin 10 mg tablet 10 mg PO DAILY Cholesterol 05/22/22 11/15/23 dorzolamide 22.3 mg-timolol 6.8 1 drp Eye-Both DAILY eyes 05/22/22 11/15/23 mg/mL eye drops latanoprost 0.005 % eye drops 1 drp Eye-Both DAILY eyes 05/22/22 11/15/23 lisinopril 10 1 tab PO DAILY bp 05/22/22 11/15/23 mg-hydrochlorothiazide 12.5 mg tablet metoprolol succinate 25 mg 25 mg PO DAILY bp 05/22/22 11/15/23 tablet,extended release 24 hr multivitamin 1 tab PO DAILY Supplement 05/22/22 11/15/23 aspirin 81 mg tablet,delayed 81 mg PO DAILY 04/26/23 11/15/23 release cholecalciferol (vitamin D3) 25 25 mcg PO DAILY 04/26/23 11/15/23 mcg (1,000 unit) capsule cyanocobalamin (vitamin B-12) 5,000 mcg sublingual DAILY 04/26/23 11/15/23 5,000 mcg sublingual tablet (Vitamin B-12) levothyroxine 150 mcg tablet 125 mcg PO DAILY thyroid 04/26/23 11/15/23 omega 4-trx-xpg-fish oil 100 1 cap PO DAILY 04/26/23 11/15/23 mg-160 mg-1,000 mg capsule (Fish Oil) Previous Rx's Medication Instructions Recorded pantoprazole 40 mg tablet,delayed 40 mg PO DAILY #30 tabs 07/06/23 release (Protonix) oxycodone 5 mg tablet 5 mg PO Q8H PRN pain #12 tabs 11/20/23 Allergies Allergy/AdvReac Type Severity Reaction Status Date / Time No Known Allergies Allergy Verified 11/15/23 09:48 [facility] Disclaimer: The information contained in this section may have been updated after the patient was seen, as this information can be updated by other users. Medical History History of acute arthritis History of hypothyroidism HLD (hyperlipidemia) HTN (hypertension) Right carpal tunnel syndrome Wrist pain Surgical History History of colonoscopy History of appendectomy History of knee replacement History of thyroidectomy Family History Other Family history of Alzheimer's disease Family history of cancer Family history of cardiac arrest Social History Smoking Status: Never smoker second hand exposure: No alcohol intake: never substance use type: denies use current occupational status: employed Travel in the last 8 weeks: None caffeine: No ROS Obtained: Yes All systems reviewed & no additional complaints except as documented Physical Exam General General appearance: alert and in no apparent distress Head Head exam: normocephalic and other (2 cm scalp laceration at the vertex of the scalp. No stepoffs) Eye Eye exam: Present normal appearance, PERRL and EOMI ENT ENT exam: Present normal exam, normal oropharynx, mucous membranes moist and normal external ear exam Neck Neck exam: Present normal inspection, full ROM and trachea midline; Absent tenderness Chest Chest inspection: Present normal inspection and symmetric chest wall rise; Absent tenderness Respiratory Respiratory exam: Present normal lung sounds bilaterally; Absent respiratory distress, wheezes, stridor or accessory muscle use Cardiovascular Cardiovascular exam: Present regular rate and normal rhythm Abdominal Exam Abdominal exam: Present soft; Absent distention, tenderness or guarding Extremities Exam Extremities exam: Present full ROM, tenderness (TTP of R lower tib fib. All compartments soft. Neurovascularly intact distally.) and normal capillary refill; Absent edema Back Exam Back exam: Present normal inspection and full ROM; Absent tenderness Neurological Exam Neurological exam: Present alert, oriented X3, CN II-XII intact and normal gait; Absent motor sensory deficit Psychiatric Psychiatric exam: Present normal affect and normal mood Skin Skin exam: Present warm and dry Medical Decision Making Medical Records Medical records reviewed: Yes I reviewed the patient's medical records. Rigo Inquiry Pt receiving controlled substance: Yes Rigo was queried for this patient: Yes Risks and benefits of using a controlled substance: were discussed with pt by me Vital Signs: 11/20/23 18:54 11/20/23 19:07 11/20/23 20:01 Temperature 98.1 F Temperature Source Oral Pulse Rate 59 L 51 L Pulse Rate [Right Radial] 74 Respiratory Rate 18 Blood Pressure 165/69 H 167/61 H Blood Pressure [Right Arm] 165/69 H Blood Pressure Mean [Right Arm] 101 02 Sat by Pulse Oximetry 97 96 98 Oxygen Delivery Method Room Air 11/20/23 20:31 11/20/23 21:30 Temperature 98.0 F Temperature Source Pulse Rate 52 L 52 L Pulse Rate [Right Radial] Respiratory Rate 20 Blood Pressure 159/63 H 159/63 H Blood Pressure [Right Arm] Blood Pressure Mean [Right Arm] 02 Sat by Pulse Oximetry 96 Oxygen Delivery Method Room Air Lab Data Lab results reviewed: Yes I reviewed the patient's lab results. Orders (Tests/Meds): ED MEDICATIONS Discontinued Medications Generic Name Dose Route Start Last Admin Trade Name Freq PRN Reason Stop Dose Admin Acetaminophen 1,000 mg 11/20/23 19:05 11/20/23 19:32 Acetaminophen 500mg Tab PO 11/20/23 19:06 1,000 mg ONCE ONE Administration Ibuprofen 800 mg 11/20/23 19:05 11/20/23 19:32 Ibuprofen 400 Mg Tablet PO 11/20/23 19:06 800 mg ONCE ONE Administration Tetanus/Reduced Diphtheria/Acell Pertussis 0.5 ml 11/20/23 19:09 11/20/23 19:32 Tet/Diphth/Pert-Adult 0.5ml Syringe IM 11/20/23 19:10 0.5 ml .ONCE ONE Administration ORDERS Category Date Time Status CT cervical spine wo con Stat Cat Scan 11/20/23 19:[address] head/brain wo con Stat Cat Scan 11/20/23 19:[address] lumbar spine wo con Stat Cat Scan 11/20/23 19:[address] thoracic spine wo con Stat Cat Scan 11/20/23 19:04 Completed Ankle XR -Right minimum 3 Views [XR ankle RT min 3V] Exams 11/20/23 19:04 Completed Stat XR chest AP Stat Exams 11/20/23 19:04 Completed XR femur RT 2V Stat Exams 11/20/23 19:04 Completed XR foot RT min 3V Stat Exams 11/20/23 19:04 Completed XR knee RT 3V Stat Exams 11/20/23 19:04 Completed XR pelvis 1-2V Stat Exams 11/20/23 19:04 Completed XR tibia fibula RT 2V Stat Exams 11/20/23 19:04 Completed Medical Decision Narrative: In summary, this patient is a 78-year-old female presenting to the Emergency Department for evaluation of fall down 2 steps with head injury and right ankle injury. Differential diagnoses considered include but are not limited to scalp laceration, skull fracture, intracranial hemorrhage, ankle fracture, C-spine fracture, polytrauma. Ruling out the most morbid conditions drove assessment. It should be noted patient's history includes hypertension, hyperlipidemia, hypothyroidism which may or may not be at goal therapy. This complicates all aspects of care by increasing patient's risk for morbidity. On exam, the patient is alert and oriented and is resting comfortably in no acute distress. She has no focal neurologic deficits. She does have a scalp laceration as well as tenderness to palpation of her right lower leg. All compartments soft, neurovascularly intact distally. She is unsure when her last tetanus shot was, so she was given Tdap booster workup included head, C/T/L spine, chest x-ray, pelvic x-ray, and x-rays of the injured right lower extremity. She was given oral Tylenol and ibuprofen for pain.. I independently interpreted x-ray and CT scan prior to the radiologist read and noted no intracranial hemorrhage. Patient does have a distal fibular fracture. Please see their read for final interpretation. On reassessment, the patient is resting comfortably. She remains neurologically intact. Her wound was copiously irrigated and repaired with radha. Please see procedure note for further documentation. She is neurovascularly intact in her right lower extremity. Given her fracture, she was placed in a walking boot for immobilization. I feel this is sufficient given isolated distal fibular fracture. She was given instructions for close outpatient follow-up with orthopedics for this. She was given instructions for wound care. I did prescribe her pain medication to take at home as needed for severe pain. She was given strict return precautions and was discharged in stable condition with instructions to limit weightbearing on her right lower extremity. She has a walker at home that she is going to use for this. Procedures Risk/Benefits of Procedure(s) Were Explained: Yes Laceration Laceration 1: Site: scalp Size (cm): 2 Description: linear Depth: simple, single layer Pre-repair: wound explored and irrigated extensively (with hibiclens and saline) Skin layer closed with: other (radha x 3) Critical Care Critical Care Time Critical Care Time: No
[2023-11-20] MEDS: ACETAMINOPHEN 500MG TAB 1000 MG PO (19:32)
[2023-11-20] MEDS: IBUPROFEN 400 MG TABLET 800 MG PO (19:32)
[2023-11-20] MEDS: TET/DIPHTH/PERT-ADULT 0.5ML SYRINGE 0.5 ML IM (19:32)
[2023-11-20 20:01] VITALS: BP 167/61; PULSE 51; O2SAT 98
[2023-11-20 20:31] VITALS: BP 159/63; PULSE 52; O2SAT 96
[2023-11-20 21:30] VITALS: BP 159/63; PULSE 52; RESP 20; TEMP 36.7; O2SAT 96
== END 2023-11-20 21:31 | disposition home or self-care (01) ==
PROVIDERS: Emergency Provider Emergency Medicine; PCP Family Medicine
DX: S82.441A Displaced spiral fracture of shaft of right fibula, initial encounter for closed fracture (principal); S01.01XA Laceration without foreign body of scalp, initial encounter; E03.9 Hypothyroidism, unspecified; I10 Essential (primary) hypertension; E78.5 Hyperlipidemia, unspecified; W10.8XXA Fall (on) (from) other stairs and steps, initial encounter; Z23 Encounter for immunization
CPT/HCPCS: 12001; 70450; 71045; 72125; 72128; 72131; 72170; 73552; 73562; 73590; 73610; 73630; 90471; 90715; 99285

== ENCOUNTER 2023-12-06 13:40 | Outpatient (CLI) | payer BC, MEDICARE, SELFPAY ==
--- NOTE | 2023-12-06 13:44 | XR_ITS ---
FINAL REPORT CLINICAL HISTORY: Rt Fibula fx COMPARISON: None FINDINGS: There is an oblique fracture of the distal fibular metaphysis with mild overlap of the fracture fragments. No significant callus formation is identified. The joint spaces are intact. Small soft tissue calcifications are identified. The knee reveals a prior right knee arthroplasty. IMPRESSION: Oblique fracture of the distal fibular metaphysis with mild overlap of the fracture fragments and no significant callus formation identified. Prior right knee arthroplasty. Reviewed, Interpreted and Dictated by Rom Hernandez III, MD Transcribed by Ximena Duran Authenticated and [facility]
== END 2023-12-06 23:59 | disposition home or self-care (01) ==
LOC: RAD 13:41
PROVIDERS: PCP Family Medicine; Visit Provider Physician Assistant Surgical
DX: M79.661 Pain in right lower leg (principal); S82.401A Unspecified fracture of shaft of right fibula, initial encounter for closed fracture
CPT/HCPCS: 73590

== ENCOUNTER 2024-01-03 09:27 | Outpatient (CLI) | payer BC, MEDICARE, SELFPAY ==
--- NOTE | 2024-01-03 09:32 | XR_ITS ---
FINAL REPORT CLINICAL HISTORY: Rt Ankle Pain COMPARISON: 12/06/2023 FINDINGS: Right ankle Three views were obtained. There is an oblique fracture of the distal fibular metaphysis with mild overlapping of fracture fragments. The bony alignment is stable. There is no significant callus formation. Mild degenerative changes are present. There are soft tissue calcifications. Calcaneal spurs are identified. IMPRESSION: Fracture as above. Reviewed, Interpreted and Dictated by Rom Hernandez III, MD Transcribed by Dianna Hameed Authenticated and [facility]
== END 2024-01-03 23:59 | disposition home or self-care (01) ==
LOC: RAD 09:28
PROVIDERS: PCP Family Medicine; Visit Provider Physician Assistant Surgical
DX: M25.571 Pain in right ankle and joints of right foot (principal)
CPT/HCPCS: 73610

== ENCOUNTER 2024-01-09 07:44 | Outpatient (RCR) | payer BC, MEDICARE, SELFPAY ==
--- NOTE | 2024-01-09 08:56 | HMH.PTOPEV ---
PT Outpatient Evaluation Rehab PT Outpatient Evaluation Start: 01/09/24 07:58 Freq: Status: Active Protocol: Document 01/09/24 08:48 LUIS DANIEL (Rec: 01/09/24 08:56 LUIS DANIEL [id number]) E-signed By Jeff Carbajal, PT Outpatient Therapy Subjective History Subjective History Pt reports injury to right ankle on 11/20/23, caused from falling down steps at work w/ imaging studies revealing distal right fibula fx. Pt reports being immobilized in cam walker from 11/20/23 to 01/02, 'and it really never hurt after the first 2 weeks, and it feels fine now.' Pt reports no right ankle pain, some stiffness, and some weakness. 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 Chief Complaint Stiff,Weakness Symptom Type Other Symptoms Relieved By Nothing Symptoms Aggravated By Physical Activity Prior Functional Limitations Driving,Standing,Walking Current Functional Limitations Driving,Standing,Walking Symptom Description Intermittent Ankle/Foot Eval Gait Observation General Gait Pattern Observation Decrease Weight Bear (R) Assistive Device Ambulation Assistive Device None Palpation Tenderness right Ankle/Foot Palpation Overall Comment distal fibula 2/4 ROM Ankle/Foot Dorsiflexion w/Knee Extended 0-12 Active Range Motion (degrees) Ankle/Foot Plantar Flexion Active Range 0-32 of Motion (degrees) Ankle/Foot Eversion Active Range of 0-22 Motion (degrees) Ankle/Foot Inversion Active Range of 0-31 Motion (degrees) Ankle/Foot ROM Limitations Soft Tissue Tightness MMT Ankle Dorsiflexion Strength Grade 5 Normal Ankle Plantarflexion Strength Grade 5 Normal Foot Eversion Strength Grade 4 Good Foot Inversion Strength Grade 4 Good Lower Extremity Functional Index Activities Today, do you or would you have any difficulty at all with: a.Any of your usual work, housework or No difficulty school activities b. Your usual hobbies, recreational or A little bit of difficulty sporting activities c. Getting into or out of the bath No difficulty d. Walking between rooms No difficulty e. Putting on your shoes or socks No difficulty f. Squatting No difficulty g. Lifting an object, like a bag of No difficulty groceries from the floor h. Performing light activities around No difficulty your home i. Performing heavy activities around No difficulty your home j. Getting into or out of a car No difficulty k. Walking 2 blocks No difficulty l. Walking a mile Moderate difficulty m. Going up or down 10 stairs (about 1 No difficulty flight of stairs) n. Standing for 1 hour No difficulty o. Sitting for 1 hour Moderate difficulty p. Running on even ground Moderate difficulty q. Running on uneven ground Moderate difficulty r. Making sharp turns while running fast Quite a bit of difficulty s. Hopping Extreme difficulty or unable to perform activity t. Rolling over in bed No difficulty LEFI Score Lower Extremity Functional Index Score 64 Outpatient Therapy Assessment Impairments Problems/Impairmments Palpation Tenderness,Impaired Range of Motion,Impaired Strength,Impaired Gait Pattern ,Impaired Walking,Impaired Work Activities,Impaired Self Care/Self Management Prognosis Rehab Potential Good Clinical Impression Consistent with Diagnosis Yes Short Term Goals Number of Weeks 4 Decreased Palpation Tenderness Yes: 0-1/4 right ankle Increase Range of Motion Yes: WFL RIGHT ANKLE AROM Increase Strength Yes: 4+-5/5 RIGHT ANKLE Improve Gait Pattern without Assistive Yes: WFL Device Increase Ability to Walk Yes: WFL Increase Ability to Stand Yes: WFL Increase Ability to Sit Yes: WFL 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/ HEP Yes Patient to be Ind w/ Advanced HEP Yes Outpatient Therapy Plan of Care Treatment Plan May Include Therapeutic Exercise Including Home Yes Exercise Program Manual Therapy Techniques Yes Neuromuscular Re-education Yes Therapeutic Activities to Return to Yes Previous Functional/Work Level Gait Training Yes ADL/Self Care Education Yes Dry Needling Yes Thermal Modalities Yes Electrical Stimulation Yes Ultrasound/Phonophoresis Yes Iontophoresis Yes Orthotics/Bracing/Splinting Yes Vasopneumatic Compression Pump Yes Eval/Re-Eval Yes Frequency Times per week 1-2 Duration Number of Weeks 3-4 Addendums This patient is a candidate for social No or vocational rehab? Patient/Guardian verbally acknowledges Yes understanding of treatment program and consents to further treatment? Patient/Guardian verbally acknowledges Yes understanding of diagnosis, prognosis and goals for treatment? Eval Complexity PT Charges 11547 - Low Complexity Shoulder/Elbow Eval Shoulder Objective Measurements Elbow Objective Measurements PHYSICIAN CERTIFICATION: I certify the specified therapy services for Flavia Willoughby are required, authorized, and reviewed every 30 days.
== END 2024-01-09 07:45 | disposition home or self-care (01) ==
LOC: PT 07:44
PROVIDERS: Visit Provider Physician Assistant Surgical
DX: M25.571 Pain in right ankle and joints of right foot (principal); S82.891A Other fracture of right lower leg, initial encounter for closed fracture
CPT/HCPCS: 97163

== ENCOUNTER 2024-01-29 09:23 | Outpatient (CLI) | payer BC, MEDICARE, SELFPAY ==
--- NOTE | 2024-01-29 09:27 | XR_ITS ---
FINAL REPORT CLINICAL HISTORY: right ankle fx november 19 COMPARISON: 01/03/2024 FINDINGS: Right ankle Three views were obtained. Again identified is a fracture of the distal fibular metaphysis. The bony alignment is stable. There is no evidence of callus formation. Calcaneal spurs are identified. There are mild degenerative changes. IMPRESSION: Fracture as above. Reviewed, Interpreted and Dictated by Rom Hernandez III, MD Transcribed by Dianna Hameed Authenticated and [facility]
== END 2024-01-29 23:59 | disposition home or self-care (01) ==
LOC: RAD 09:25
PROVIDERS: PCP Family Medicine; Visit Provider Physician Assistant Surgical
DX: S82.831D Other fracture of upper and lower end of right fibula, subsequent encounter for closed fracture with routine healing (principal)
CPT/HCPCS: 73610

== ENCOUNTER 2024-09-03 11:57 | Outpatient (CLI) | payer BC, MEDICARE, SELFPAY ==
--- NOTE | 2024-09-03 | XR_ITS ---
FINAL REPORT TECHNIQUE: 3 views CLINICAL HISTORY: PAIN FINDINGS: There is no fracture present. There is no malalignment. There is thoracic kyphosis. There is moderate diffuse degenerative disc change. IMPRESSION: Moderate degenerative changes. Reviewed, Interpreted and Dictated by Ena Stroud MD Transcribed by Dianna Hameed Authenticated and [facility]
--- OUTSIDE RECORDS SUMMARY | 2024-09-04 22:07 | XMS_ITS ---
Author Organization Unknown Medications Medication Instructions Effective Dates (start - stop) Status levothyroxine sodium 0.15 MG Oral Tablet 8096-08-99P29:00:00.000+00 :00 - Completed levothyroxine sodium 0.15 MG Oral Tablet 8827-40-38M95:00:00.000+00 :00 - Completed levothyroxine sodium 0.15 MG Oral Tablet 6642-08-21C12:00:00.000+00 :00 - Completed atorvastatin 10 MG Oral Tablet 2 477-15-45H43:00:00.000+00 :00 - Completed atorvastatin 10 MG Oral Tablet 2 969-80-61F69:00:00.000+00 :00 - Completed atorvastatin 10 MG Oral Tablet 2 065-73-81J75:00:00.000+00 :00 - Completed atorvastatin 10 MG Oral Tablet 2 171-56-76J51:00:00.000+00 :00 - Completed levothyroxine sodium 0.15 MG Oral Tablet 4304-90-08T42:00:00.000+00 :00 - Completed atorvastatin 10 MG Oral Tablet 2 873-59-57E27:00:00.000+00 :00 - Completed atorvastatin 10 MG Oral Tablet 2 540-46-21P87:00:00.000+00 :00 - Completed levothyroxine sodium 0.15 MG Oral Tablet 5457-28-28B04:00:00.000+00 :00 - Completed atorvastatin 10 MG Oral Tablet 2 033-42-80H37:00:00.000+00 :00 - Completed levothyroxine sodium 0.15 MG Oral Tablet 5222-91-16B76:00:00.000+00 :00 - Completed levothyroxine sodium 0.15 MG Oral Tablet 9778-97-97P25:00:00.000+00 :00 - Completed levothyroxine sodium 0.15 MG Oral Tablet 9955-88-71I22:00:00.000+00 :00 - Completed levothyroxine sodium 0.15 MG Oral Tablet 7885-83-88L14:00:00.000+00 :00 - Completed levothyroxine sodium 0.15 MG Oral Tablet 7857-96-67W12:00:00.000+00 :00 - Completed levothyroxine sodium 0.15 MG Oral Tablet 9437-95-11S09:00:00.000+00 :00 - Completed - 6096-25-16C71:00 :00.000+00 :00 - Completed atorvastatin 10 MG Oral Tablet 606-22-01Y98:00:00.000+00 :00 - Completed levothyroxine sodium 0.15 MG Oral Tablet 4061-13-37P79:00:00.000+00 :00 - Completed latanoprost 0.05 MG/ML Ophth almic Solution 1545-36-05M52:00:00.000+00 :00 - Completed latanoprost 0.05 MG/ML Ophth almic Solution 2756-80-63C45:00:00.000+00 :00 - Completed atorvastatin 10 MG Oral Tablet 221-96-32P42:00:00.000+00 :00 - Completed 24 HR metoprolol succinate 2 5 MG Extended Release Oral Tablet 1991-42-56B28:00:00.000+0 0 :00 - Completed latanoprost 0.05 MG/ML Ophth almic Solution 7660-76-54P74:00:00.000+00 :00 - Completed celecoxib 200 MG Oral Capsule 16-01-26:00:00.000+00 :00 - Completed 24 HR metoprolol succinate 2 5 MG Extended Release Oral Tablet 6080-58-90H23:00:00.000+0 0 :00 - Completed celecoxib 200 MG Oral Capsule 16-01-02:00:00.000+00 :00 - Completed latanoprost 0.05 MG/ML Ophth almic Solution 9801-83-02O14:00:00.000+00 :00 - Completed latanoprost 0.05 MG/ML Ophth almic Solution 4047-73-88Z40:00:00.000+00 :00 - Completed atorvastatin 10 MG Oral Tablet 531-92-67P28:00:00.000+00 :00 - Completed atorvastatin 10 MG Oral Tablet 2 961-72-41B86:00:00.000+00 :00 - Completed latanoprost 0.05 MG/ML Ophth almic Solution 4030-90-83W00:00:00.000+00 :00 - Completed latanoprost 0.05 MG/ML Ophth almic Solution 3928-44-46K41:00:00.000+00 :00 - Completed latanoprost 0.05 MG/ML Ophth almic Solution 6019-31-90W95:00:00.000+00 :00 - Completed 24 HR metoprolol succinate 2 5 MG Extended Release Oral Tablet 5852-14-78Q54:00:00.000+0 0 :00 - Completed 24 HR metoprolol succinate 2 5 MG Extended Release Oral Tablet 4392-73-12T71:00:00.000+0 0 :00 - Completed celecoxib 200 MG Oral Capsule 17-10-29:00:00.000+00 :00 - Completed celecoxib 200 MG Oral Capsule 18-05-29:00:00.000+00 :00 - Completed 24 HR metoprolol succinate 2 5 MG Extended Release Oral Tablet 2239-67-15F26:00:00.000+0 0 :00 - Completed celecoxib 200 MG Oral Capsule 18-09-27:00:00.000+00 :00 - Completed 24 HR metoprolol succinate 2 5 MG Extended Release Oral Tablet 3525-67-94Y99:00:00.000+0 0 :00 - Completed celecoxib 200 MG Oral Capsule 17-08-30:00:00.000+00 :00 - Completed celecoxib 200 MG Oral Capsule 20-07-06:00:00.000+00 :00 - Completed latanoprost 0.05 MG/ML Ophth almic Solution 8947-92-98F22:00:00.000+00 :00 - Completed celecoxib 200 MG Oral Capsule 17-08-06:00:00.000+00 :00 - Completed 24 HR metoprolol succinate 2 5 MG Extended Release Oral Tablet 2674-33-62O02:00:00.000+0 0 :00 - Completed 24 HR metoprolol succinate 2 5 MG Extended Release Oral Tablet 7943-31-19W39:00:00.000+0 0 :00 - Completed latanoprost 0.05 MG/ML Ophth almic Solution 6877-70-30J46:00:00.000+00 :00 - Completed latanoprost 0.05 MG/ML Ophth almic Solution 9677-69-93J90:00:00.000+00 :00 - Completed 24 HR metoprolol succinate 2 5 MG Extended Release Oral Tablet 1883-83-34K75:00:00.000+0 0 :00 - Completed celecoxib 200 MG Oral Capsule 17-11-22:00:00.000+00 :00 - Completed 24 HR metoprolol succinate 2 5 MG Extended Release Oral Tablet 7686-45-84Z88:00:00.000+0 0 :00 - Completed latanoprost 0.05 MG/ML Ophth almic Solution 8410-79-31B16:00:00.000+00 :00 - Completed latanoprost 0.05 MG/ML Ophth almic Solution 1300-76-58Q78:00:00.000+00 :00 - Completed 24 HR metoprolol succinate 2 5 MG Extended Release Oral Tablet 3299-00-12Y64:00:00.000+0 0 :00 - Completed 24 HR metoprolol succinate 2 5 MG Extended Release Oral Tablet 6357-53-61R86:00:00.000+0 0 :00 - Completed celecoxib 200 MG Oral Capsule 18-04-30:00:00.000+00 :00 - Completed amoxicillin 500 MG Oral Capsule 2509-35-10O42:00:00.000+00 :00 - Completed celecoxib 200 MG Oral Capsule 18-03-31:00:00.000+00 :00 - Completed celecoxib 200 MG Oral Capsule 16-02-29:00:00.000+00 :00 - Completed 24 HR tolterodine tartrate 4 MG Extended Release Oral Capsule 8693-83-25S75:00:00.000+ 00 :00 - Completed atorvastatin 10 MG Oral Tablet 141-58-27M33:00:00.000+00 :00 - Completed 24 HR tolterodine tartrate 4 MG Extended Release Oral Capsule 7793-48-69D69:00:00.000+ 00 :00 - Completed 24 HR tolterodine tartrate 4 MG Extended Release Oral Capsule 5939-74-53V51:00:00.000+ 00 :00 - Completed dorzolamide 20 MG/ML / timol ol 5 MG/ML Ophthalmic Solution 9695-36-48V99:00:00.000+00 :00 - Completed hydrochlorothiazide 12.5 MG / lisinopril 10 MG Oral Tablet 8429-70-58N59:00:00.000+0 0 :00 - Completed hydrochlorothiazide 12.5 MG / lisinopril 10 MG Oral Tablet 3097-84-45M44:00:00.000+0 0 :00 - Completed hydrochlorothiazide 12.5 MG / lisinopril 10 MG Oral Tablet 0730-39-06G42:00:00.000+0 0 :00 - Completed hydrochlorothiazide 12.5 MG / lisinopril 10 MG Oral Tablet 6090-37-55W55:00:00.000+0 0 :00 - Completed hydrochlorothiazide 12.5 MG / lisinopril 10 MG Oral Tablet 0532-27-41N90:00:00.000+0 0 :00 - Completed dorzolamide 20 MG/ML / timol ol 5 MG/ML Ophthalmic Solution 3180-70-16R03:00:00.000+00 :00 - Completed hydrochlorothiazide 12.5 MG / lisinopril 10 MG Oral Tablet 1950-99-69D47:00:00.000+0 0 :00 - Completed dorzolamide 20 MG/ML / timol ol 5 MG/ML Ophthalmic Solution 6636-73-67M86:00:00.000+00 :00 - Completed hydrochlorothiazide 12.5 MG / lisinopril 10 MG Oral Tablet 4386-74-07E21:00:00.000+0 0 :00 - Completed hydrochlorothiazide 12.5 MG / lisinopril 10 MG Oral Tablet 2907-84-71Z63:00:00.000+0 0 :00 - Completed hydrochlorothiazide 12.5 MG / lisinopril 10 MG Oral Tablet 4659-27-61V24:00:00.000+0 0 :00 - Completed hydrochlorothiazide 12.5 MG / lisinopril 10 MG Oral Tablet 5934-52-12Y70:00:00.000+0 0 :00 - Completed hydrochlorothiazide 12.5 MG / lisinopril 10 MG Oral Tablet 3616-81-86L04:00:00.000+0 0 :00 - Completed hydrochlorothiazide 12.5 MG / lisinopril 10 MG Oral Tablet 5354-10-80H64:00:00.000+0 0 :00 - Completed hydrochlorothiazide 12.5 MG / lisinopril 10 MG Oral Tablet 1591-01-13W86:00:00.000+0 0 :00 - Completed dorzolamide 20 MG/ML / timol ol 5 MG/ML Ophthalmic Solution 3964-41-59K51:00:00.000+00 :00 - Completed Patient Care team information Name Category Status Period Participants - - Proposed period not known -
--- OUTSIDE RECORDS SUMMARY | 2024-09-04 22:07 | XMS_ITS ---
Author Organization Unknown Immunizations Date Vaccine DateAdministered TimeAdministered VaccineCode Dose Strength Unit Continuity Tester DueDate CptCode CvxCode ManufacturerCode LocationCode AdministeredBy 05/03 00:00 :00 Fluzone High Dose (65yr and older) 05/03/2022 00:00:00 [id number] 12/22 00:00 :00 Prevnar (PCV20) 12/22/2022 10:46:00 10:46:00 [id number] 0.5 mL [employer] [employer] 03/27/20 00:00:00 [id number] Pf[employer] Sheree Diggs
== END 2024-09-03 23:59 | disposition home or self-care (01) ==
LOC: RAD 11:59
PROVIDERS: PCP Family Medicine; Visit Provider Family Medicine
DX: M54.6 Pain in thoracic spine (principal)
CPT/HCPCS: 72072